=== PATIENT | male | born 1975 | race Hispanic/Latino ===

== ENCOUNTER 2018-05-25 13:45 | Emergency (ER) | payer OTHER ==
[2018-05-25] MEDS ORDERED: Lidocaine 1% w/Epinephrine 1:100K 20 ML VIAL ONE (13:48)
[2018-05-25] MEDS ORDERED: Adacel (T-DAP) 0.5 ML VIAL ONE (14:07)
[2018-05-25 14:09] LABS: #Eosinphils 0.1 thou/uL (0.0-0.7); #Lymphocytes 3.2 thou/uL (1.20-3.40); #Monocytes 0.7 thou/uL (0.11-0.59); #Neutrophils 8.2 thou/uL (1.40-6.50); %Basophils 0.3 % (0.0-1.0); %Lymphocytes 25.7 % (21.0-51.0); %Monocytes 5.8 % (0.0-10.0); %Neutrophils 67.2 % (42.0-75.0); Hemoglobin 16.6 g/dL (14.0-18.0); Mean Corpuscular HGB CONC 35.1 g/dL (32.0-36.0); Mean Corpuscular Hemoglobin 31.2 pg (27.0-31.0); Mean Corpuscular Volume 88.9 fL (78.0-98.0); Mean Platelet Volume 7.7 fL (7.4-10.4); Platelet Count 204 thou/uL (130-400); RBC Distribution Width 12.1 % (11.5-14.5); Red Blood Cell (RBC) Count 5.31 mill/uL (4.70-6.10); White Blood Cell (WBC) Count 12.3 thou/uL (4.8-10.8)
[2018-05-25] MEDS ORDERED: CEFAZOLIN/Water 2 GM/20 ML SYRINGE SLOW IVP SCH (14:15)
[2018-05-25 14:19] LABS: INR-International Normal Ratio 1.1; PTT 28.5 SEC (22.9-36.1); Prothrombin Time 14.1 SEC (12.0-14.7)
[2018-05-25 14:23] LABS: ALT (SGPT) 36 U/L (8-55); AST (SGOT) 24 U/L (5-34); Albumin 3.9 g/dL (3.5-5.0); Alkaline Phosphatase 88 U/L (40-150); Anion Gap 13 mmol/L (10-20); BUN (Urea Nitrogen) 13 mg/dL (8.9-20.6); Bilirubin, Total 0.6 mg/dL (0.2-1.2); Calc. Creatinine Clearance 0 mL/min (70-130); Calcium 8.7 mg/dL (7.8-10.44); Carbon Dioxide 23 mmol/L (22-29); Chloride 109 mmol/L (98-107); Estimated GFR-MDRD 75; Globulin 3.7 g/dL (2.4-3.5); Glucose 144 mg/dL (70-105); Protein, Total 7.6 g/dL (6.0-8.3); Sodium 141 mmol/L (136-145)
[2018-05-25] MEDS ORDERED: Bacitracin Zinc 1 Packet ONE (14:23)
--- NOTE | 2018-05-25 20:29 | OP ---
PREOPERATIVE DIAGNOSES: Skill saw injury in right abdomen, morbid obesity. POSTOPERATIVE DIAGNOSES: Skill saw injury in right abdomen, morbid obesity. PROCEDURES: Complex closure of 18 cm wound in right abdomen, skin and subcutaneous tissue; debrideme nt of devitalized skin. SURGEON: Salvatore Murcia MD ANESTHESIA: 1% Xylocaine with epinephrine. DESCRIPTION OF PROCEDURE: With the patient at bedside in the emergency room, his abdomen was prepare d with Betadine. There were some bleeders that were controlled with 3-0 Vicryl [id number] sutur e and cautery. Devitalized skin was debrided sharply with a 10 blade and excised. Subcutaneous tiss ues of this complex wound and dermis approximated with sutures of 3-0 Vicryl. Skin was approximated with laura. Sterile dressing was applied.
--- NOTE | 2018-05-25 22:22 | HP ---
HISTORY OF PRESENT ILLNESS: Frederick Celeste is a 42-year-old male, transferred level 1 trauma from [facility]. The patient suffered a skill saw injury to his right abdomen while trimming branches. H ben is hemodynamically stable. He has a dressing in place. There is a repeat of arterial bleeding. H e is morbidly obese. ALLERGIES: None. TOBACCO: None. ALCOHOL: Socially. MEDICATIONS: Psoriatic cream. PAST MEDICAL HISTORY: Psoriasis, morbid obesity. PAST SURGICAL HISTORY: Finger surgery, left in the past. REVIEW OF SYSTEMS: Noncontributory. PHYSICAL EXAMINATION: VITAL SIGNS: Blood pressure 120/70, heart rate 74, respiratory rate 22. HEENT: Unremarkable. LUNGS: Clear to auscultation. CARDIAC: Regular rate and rhythm without murmur or gallop. EXTREMITIES: Unremarkable. SKIN: Psoriatic lesions in extremities and abdomen. NEUROLOGIC: Parveen coma scale is 15. Alert and oriented. Cranial nerves intact. ABDOMEN: Right abdomen reveals a dressing removal has 2 arterial bleeders. There were controlled wi th 3-0 Vicryl suture. Wound prepared with Betadine. There is devitalized irregular skin. There is a bridging incision, laceration. LABORATORY DATA: Laboratories pending. ASSESSMENT AND PLAN: A skill saw injury, right side of his abdomen; morbidly obese, and subcutaneous tissues does not penetrate the abdominal wall. We would recommend bedside closure and discharged ho md.
== END 2018-05-25 16:06 | disposition home or self-care (01) ==
LOC: ERS 13:45
DX: S31.119A Laceration without foreign body of abdominal wall, unspecified quadrant without penetration into peritoneal cavity, initial encounter (principal); L40.9 Psoriasis, unspecified; Z23 Encounter for immunization; W27.0XXA Contact with workbench tool, initial encounter
CPT/HCPCS: 13101; 13102; 82150; 85610; 85730; 86850; 86900; 86901; 90471; 90715; 96374; G0390; J2001